=== PATIENT | male | born 1950 | race Caucasian/White ===

== ENCOUNTER 2019-06-30 14:26 | Emergency (ER) | payer OTHER ==
[~2019-06-30] VITALS: Ht 172.7 cm; Wt 74.4 kg
[2019-06-30] MEDS ORDERED: BACTRIM DS TAB1 EACH PO (17:04)
[2019-06-30] MEDS ORDERED: ALLEGRA ALLERG180 MG PO (17:04)
== END 2019-06-30 17:15 | disposition home or self-care (01) ==
LOC: ER 14:26
DX: L03.116 Cellulitis of left lower limb (principal); T63.444A Toxic effect of venom of bees, undetermined, initial encounter; R60.0 Localized edema; Y92.89 Other specified places as the place of occurrence of the external cause

== ENCOUNTER → 2021-05-26 | Emergency (ER) | payer OTHER ==
[~2021-05-26] VITALS: Ht 172.7 cm; Wt 77.1 kg
[~2021-05-26] MED LIST: ALLEGRA ALLERG180 MG PO; BACTRIM DS TAB1 EACH PO
== END | disposition home or self-care (01) ==
LOC: ER 10:31
DX: I63.89 Other cerebral infarction (principal); G45.8 Other transient cerebral ischemic attacks and related syndromes; R47.81 Slurred speech; R20.2 Paresthesia of skin; R53.1 Weakness

== ENCOUNTER → 2021-05-27 | Emergency (ER) | payer OTHER ==
[~2021-05-27] VITALS: Ht 172.7 cm; Wt 77.1 kg
== END | disposition left against medical advice (07) ==
LOC: ER 14:28
DX: G45.8 Other transient cerebral ischemic attacks and related syndromes (principal)